=== PATIENT | female | born 1945 | race Caucasian/White ===

== ENCOUNTER 2017-06-28 19:38 | Emergency (ER) | payer MEDICARE ==
--- NOTE | 2017-06-29 10:10 | ER ---
DATE OF SERVICE: 06/28/2017 HISTORY OF PRESENT ILLNESS: A 71-year-old lady here with complaints of pain involving the left side of the chest that happened earlier today. She states it was above and below the left breast and seemed to radiate out to the side. The pain was not intense. She describes it as just being there and the pain is currently resolved. She denies any falls or injuries. She denies any history of heart disease. She did not have any problems with shortness of breath or wheezing. She thinks it may have gotten a little worse when she took a deep breath, she is not sure. She has otherwise been healthy. CURRENT MEDICATIONS: Include Zestoretic. OBJECTIVE: GENERAL APPEARANCE: The patient is awake and alert, in no obvious distress at this time. She denies any pain at all. VITAL SIGNS: Reviewed. Her temp is 98.9, pulse 95, blood pressure 138/64, respirations 20, O2 sats are 99%. HEENT: Ears, TMs are normal. Nares are patent. Oral mucous membranes are moist. Tonsils not enlarged or injected. Pharynx not inflamed. NECK: Supple. LUNGS: Clear without rales, wheezes, or rhonchi. CARDIAC: Heart sounds distinct. S1, S2 present. Regular rate. No murmurs. I cannot reproduce any pain with palpation of the left anterior or lateral chest wall. ABDOMEN: Soft, protuberant, nontender. Bowel sounds are present. SKIN: Warm and dry. LAB AND X-RAY STUDIES: An EKG is obtained showing normal sinus rhythm. Labs include CBC which is normal. CMP is also normal. Troponin is normal. DIAGNOSIS: Chest wall pain, resolved when arriving at the emergency room. TREATMENT PLAN: I advised the patient this could be some kind of inflammatory process or possible pleurisy, but her condition is resolved. I advised her to use ibuprofen or Motrin if the pain reoccurs. Activity should be as tolerated. Follow up is p.r.nAman CRS/MODL /[id number] SARAH
== END 2017-06-28 22:01 | disposition home or self-care (01) ==
LOC: LB.ED 19:38
DX: R07.89 Other chest pain (principal)
CPT/HCPCS: 36415; 80053; 84484; 85025; 93005; 99284-25

== ENCOUNTER 2018-08-31 07:24 | Day surgery (SDC) | payer MEDICARE ==
[~2018-08-31 07:24] MED LIST: Metoclopramide 10 MG/2 ML SDV IV PRN; Sodium Chloride 0.9% 1,000 ML IV SCH
[2018-08-31] MEDS ORDERED: Propofol 1,000 MG/100 ML SDV ONE (09:35)
--- NOTE | 2018-08-31 14:57 | OR ---
DATE OF OPERATION: 08/31/2018 PREOPERATIVE DIAGNOSIS: History of colon polyps. POSTOPERATIVE DIAGNOSIS: History of colon polyps. PROCEDURE: Surveillance colonoscopy. ANESTHESIA: MAC. ESTIMATED BLOOD LOSS: None. COMPLICATIONS: None. INDICATION FOR THE PROCEDURE: The patient is a 73-year-old female who has had previous colonoscopy 5 to 6 years ago, who apparently had polyps at that time and was scheduled for a 5-year followup. She otherwise denies any change in bowel habits since that time. DESCRIPTION OF PROCEDURE: Informed consent was obtained from the patient. The patient was taken to the operating room and placed on the table in the left lateral decubitus position. Monitored anesthesia care was administered. Digital rectal exam performed and was normal. Colonoscope was then advanced through the anus directed toward the cecum. Cecum was reached and identified by appendiceal orifice and ileocecal valve. The colonoscope was then slowly withdrawn. No masses. No polyps. No areas of ischemia or inflammation. No AV malformations identified. She did have moderately severe diverticulosis throughout her sigmoid colon, both large and small diverticula present. Retroflexion performed in the rectum was also otherwise unremarkable. Colonoscope was then withdrawn. FINDINGS: Sigmoid diverticulosis. RECOMMENDATIONS: Would recommend repeat surveillance colonoscopy in 5 years due to personal history of colon polyps. Would also recommend high-fiber diet and plenty of water for her diverticula. ANASTASIIA/EL /[id number]
== END 2018-08-31 11:11 | disposition home or self-care (01) ==
LOC: LB.SDS 07:24
PROVIDERS: ATTEND Surgery
DX: Z12.11 Encounter for screening for malignant neoplasm of colon (principal); K57.30 Diverticulosis of large intestine without perforation or abscess without bleeding; Z86.010 Personal history of colon polyps; I10 Essential (primary) hypertension; Z79.899 Other long term (current) drug therapy
CPT/HCPCS: G0121; J2704; J7030

== ENCOUNTER 2019-09-20 09:34 | Emergency (ER) | payer MEDICARE ==
[2019-09-20] MEDS: Nitroglycerin 0.4 MG Tab.SL SL PRN ×3 (10:08→11:20)
[2019-09-20] MEDS ORDERED: Aspirin 81 MG Tab.Chew PO ONE (10:09)
[2019-09-20] MEDS: Sodium Chloride 0.9% 500 ML IV ONE ×2 (10:25→11:01)
[2019-09-20] MEDS ORDERED: Heparin Sodium 5,000 Units/ML Vial IVPUSH ONE (10:57)
[2019-09-20] MEDS ORDERED: Heparin Sodium/D5W 25,000 UNITS/500 ML BAG IV SCH (11:00)
[2019-09-20] MEDS: Acetaminophen 325 MG Tab ONE ×2 (11:00→11:50)
[2019-09-20] MEDS ORDERED: Tenecteplase 50 MG Kit IV PRN (11:25)
[2019-09-20] MEDS ORDERED: Sodium Chloride 0.9% 1,000 ML IV ONE (11:30)
[2019-09-20] MEDS ORDERED: Acetaminophen 325 MG Tab PO ONE ×2 (11:43→11:50)
--- NOTE | 2019-09-20 14:18 | EDM.PDOC ---
ED HPI GENERAL MEDICAL PROBLEM - General Chief Complaint: General Stated Complaint: SOB, DIZZINESS Time Seen by Provider: 09/20/19 10:00 Source of Information: Reports: Patient History Limitations: Reports: No Limitations - History of Present Illness INITIAL COMMENTS - FREE TEXT/NARRATIVE: Patient is a 74 y/o female who presents with sudden, onset chest pain that started around 0940. She describes it as bilateral chest pain that is tight, sharp, and non-radiating. Associated SOB and diaphoresis. Patient was at rest when symptoms occurred. She takes medications for HTN and HLD. Patient denies any fever, cough, difficulty breathing/swallowing, dizziness, SPRINGER, weakness/tingling, abdominal/back pain, or N/V. Onset: Today, Sudden Associated Symptoms: Reports: Diaphoresis, Shortness of Breath Treatments OFFICE DIRECTOR: Reports: Aspirin Middle Chest Pain Score (Numeric/FACES): 5 - Related Data Allergies Allergy/AdvReac Type Severity Reaction Status Date / Time No Known Allergies Allergy Verified 09/20/19 10:27 Home Meds: Home Meds Aspirin [Adult Low Dose Aspirin EC] 81 mg PO BEDTIME 06/28/17 [History] Lisinopril/Hydrochlorothiazide [Lisinopril-Hctz 20-12.5 mg Tab] 1 each PO BID 06/28/17 [History] atorvaSTATin [Lipitor] 40 mg PO DAILY 08/29/18 [History] Past Medical History HEENT History: Reports: Impaired Vision Cardiovascular History: Reports: High Cholesterol, Hypertension MANAGER ASSESSMENT History: Reports: - Infectious Disease History Infectious Disease History: Reports: Chicken Pox, Measles - Past Surgical History GI Surgical History: Reports: Colonoscopy Musculoskeletal Surgical History: Reports: Other (See Below) Other Musculoskeletal Surgeries/Procedures:: BKA Social & Family History - Family History Family Medical History: Noncontributory - Caffeine Use Caffeine Use: Reports: Coffee Caffeine Use Comment: Drinks tea rarely ED ROS GENERAL - Review of Systems Review Of Systems: Comprehensive ROS is negative, except as noted in HPI. ED EXAM, GENERAL - Physical Exam Exam: See Below Exam Limited By: No Limitations General Appearance: Alert, Anxious, Mild Distress Respiratory/Chest: No Respiratory Distress, Lungs Clear, Normal Breath Sounds, No Accessory Muscle Use, Chest Non-Tender Cardiovascular: Normal Peripheral Pulses, Regular Rate, Rhythm, No Edema, No Gallop, No JVD, No Murmur, No Rub Peripheral Pulses: 2+: Carotid (L), Carotid (R), Radial (L), Radial (R), Dorsalis Pedis (L), Dorsalis Pedis (R) GI/Abdominal: Normal Bowel Sounds, Soft, Non-Tender, No Organomegaly, No Distention Extremities: No Pedal Edema, Normal Capillary Refill Neurological: Alert, Oriented, Normal Cognition EKG INTERPRETATION EKG Date: 09/20/19 Time: 09:48 Rhythm: NSR Rate (Beats/Min): 65 [place]: Normal P-Wave: Present QRS: Normal ST-T: Elevated QT: Normal Comparison: NA - No Prior EKG EKG Interpretation Comments: elevated ST in lead III. ST depression in aVL. Repeat EKG at [address] elevation in inferior leads (II, III, and aVF). Course - Vital Signs Text/Narrative:: Labs, EKG, and chest xray ordered. Patient given nitro x 3 with improvement of chest pain from a 5/10 to 3-4/10 after nitro given. Tylenol 650 mg given for headache. 2 L bolus fluid given. ASA full dose given. Called Dr. Johns (Cardio) from . Heparin 5,000 U bolus given and 800 U/hr afterwards. Elevated troponin. Worsening EKG with repeat. Discussed with Dr. Bean (Cardio) and will fly patient there immediately for rn lab. TNK 50 mg given for thrombolytics. Last Recorded V/S: Last Vital Signs Temp 35.9 C L 09/20/19 10:00 Pulse 55 L 09/20/19 11:41 Resp 15 09/20/19 11:41 BP 96/51 L 09/20/19 11:41 Pulse Ox 96 09/20/19 11:41 - Orders/Labs/Meds Orders: Active Orders 24 hr Category Date Time Status EKG Documentation Completion [RC] ASDIRECTED Care 09/20/19 10:03 Active Chest 1V Frontal [CR] Stat Exams 09/20/19 10:03 Taken Heparin Sodium/D5W [Heparin 25,000 Units in D5W 500 ML] Med 09/20/19 11:00 Active 25,000 units in 500 ml IV TITRATE Tenecteplase [Tnkase] Med 09/20/19 11:25 Ordered 50 mg IV ONETIME PRN Medication Orders Heparin Sodium/Dextrose (Heparin 25,000 Units In D5w 500 Ml) 25,000 units in 500 mls @ 23.514 mls/hr IV TITRATE KASSANDRA; Protocol Last Admin: 09/20/19 10:50 Dose: 16 units/kg/hr, 23.514 mls/hr Documented by: TOM Cosigned by: PAUL Tenecteplase (Tnkase) 50 mg IV ONETIME PRN; Protocol PRN Reason: Chest Pain Labs: Laboratory Tests 09/20/19 09/20/19 09/20/19 Range/Units 10:15 10:15 11:20 WBC 6.7 D (4.0-11.0) K/uL RBC 4.53 (3.80-5.80) M/uL Hgb 13.1 (11.5-16.5) g/dL Hct 39.3 (37.0-47.0) % MCV 87 (76-96) fL MCH 28.9 (27.0-32.0) pg MCHC 33.3 (31.0-35.0) g/dL RDW 15.2 (11.0-16.0) % Plt Count 212 (150-500) K/uL MPV 10.9 H (6.0-10.0) fL Neut % (Auto) 45.7 (45.0-70.0) % Lymph % (Auto) 35.1 (20.0-40.0) % [place] % (Auto) 14.1 H (3.0-10.0) % Eos % (Auto) 4.5 (1.0-5.0) % Baso % (Auto) 0.6 H (0.0-0.5) % Neut # (Auto) 3.05 (2.00-7.50) K/uL Lymph # (Auto) 2.34 (1.50-4.00) K/uL [place] # (Auto) 0.94 H (0.20-0.80) K/uL Eos # (Auto) 0.30 (0.04-0.40) K/uL Baso # (Auto) 0.04 (0.02-0.10) K/uL PT 10.3 (9.0-11.5) sec INR 1.0 (1.0-3.5) APTT 23.4 L (24.4-33.2) SECONDS Sodium 139 (136-145) mmol/L Potassium 3.2 L (3.5-5.1) mmol/L Chloride 104 (98-107) mmol/L Carbon Dioxide 26.2 (21.0-32.0) mmol/L Anion Gap 12.0 (5.0-15.0) mmol/L BUN 35 H (8-26) mg/dL Creatinine 1.60 H (0.55-1.02) mg/dL Est Cr Clr Drug Dosing 26.29 mL/min Estimated GFR (MDRD) 32 L (>60) MLS/MIN BUN/Creatinine Ratio 21.9 (6-25) Glucose 165 H D (74-100) mg/dL Calcium 8.9 (8.5-10.1) mg/dL Total Bilirubin 0.4 (0.0-1.0) mg/dL AST 29 (15-37) U/L ALT 24 (12-78) U/L Alkaline Phosphatase 124 H (46-116) U/L Troponin I 0.619 H* D (0.000-0.060) ng/mL Total Protein 7.4 (6.4-8.2) g/dL Albumin 3.2 L (3.4-5.0) g/dL Globulin 4.2 (2.2-4.2) g/dL Albumin/Globulin Ratio 0.8 (0.8-2.0) Meds: Medications Generic Name Dose Route Start Last Admin Trade Name Freq PRN Reason Stop Dose Admin Heparin Sodium/Dextrose 25,000 units in 500 mls @ 23.514 mls/hr 09/20/19 11:00 09/20/19 10:50 Heparin 25,000 Units In D5w 500 Ml IV 16 units/kg/hr TITRATE KASSANDRA 23.514 mls/hr Administration Protocol 16 UNITS/KG/HR Tenecteplase 50 mg 09/20/19 11:25 Tnkase IV ONETIME PRN Chest Pain Protocol Discontinued Medications Generic Name Dose Route Start Last Admin Trade Name Freq PRN Reason Stop Dose Admin Acetaminophen Confirm 09/20/19 11:16 09/20/19 11:50 Tylenol Administered 09/20/19 11:17 Not Given Dose 650 mg .ROUTE .STK-MED ONE Acetaminophen 650 mg 09/20/19 11:43 09/20/19 11:00 Tylenol PO 09/20/19 11:44 650 mg NOW ONE Administration Acetaminophen 650 mg 09/20/19 11:50 09/20/19 11:51 Tylenol PO 09/20/19 11:51 Not Given NOW ONE Aspirin 273 mg 09/20/19 10:09 09/20/19 10:03 Aspirin PO 09/20/19 10:10 273 mg ONETIME ONE Administration Heparin Sodium (Porcine) 5,000 units 09/20/19 10:57 09/20/19 10:54 Heparin Sodium IVPUSH 09/20/19 10:58 5,000 units .BOLUS ONE Administration Sodium Chloride 500 mls @ 999 mls/hr 09/20/19 01:30 09/20/19 11:01 Normal Saline IV 09/20/19 02:00 999 mls/hr .BOLUS ONE Administration Sodium Chloride 1,000 mls @ 999 mls/hr 09/20/19 11:30 09/20/19 11:34 Normal Saline IV 09/20/19 12:30 999 mls/hr .BOLUS ONE Administration Nitroglycerin 0.4 mg 09/20/19 10:08 09/20/19 11:20 Nitrostat SL 0.4 mg Q5M PRN Administration Chest Pain Departure - Departure Time of Disposition: 11:30 (transfer to [facility] by flight) Disposition: DC/Tfer to Other Condition: Critical Clinical Impression: STEMI (ST elevation myocardial infarction) Qualifiers: Involved coronary artery: other inferior wall coronary artery Qualified Code(s): I21.19 - ST elevation (STEMI) myocardial infarction involving other coronary artery of inferior wall - Discharge Information *PRESCRIPTION DRUG MONITORING PROGRAM REVIEWED*: Not Applicable *COPY OF PRESCRIPTION DRUG MONITORING REPORT IN PATIENT CONNIE: Not Applicable Sepsis Event Note (ED) - Evaluation Sepsis Screening Result: No Definite Risk - Focused Exam Vital Signs: Vital Signs Temp Pulse Resp BP BP Pulse Ox 09/20/19 11:41 55 L 15 96/51 L 96 09/20/19 11:31 56 L 11 L 104/52 L 09/20/19 11:20 100/53 L 09/20/19 11:16 56 L 92/47 L 09/20/19 10:13 111/79 09/20/19 10:08 67 16 114/78 114/78 99 09/20/19 10:06 116/71 92 L 09/20/19 10:00 35.9 C L 66 13 141/79 H 98 09/20/19 09:45 35.9 C L 66 13 141/79 H 98 - My Orders Last 24 Hours: My Active Orders 09/20/19 10:03 EKG Documentation Completion [RC] ASDIRECTED Chest 1V Frontal [CR] Stat 09/20/19 11:00 Heparin Sodium/D5W [Heparin 25,000 Units in D5W 500 ML] 25,000 units in 500 ml IV TITRATE 09/20/19 11:25 Tenecteplase [Tnkase] 50 mg IV ONETIME PRN - Assessment/Plan Last 24 Hours: My Active Orders 09/20/19 10:03 EKG Documentation Completion [RC] ASDIRECTED Chest 1V Frontal [CR] Stat 09/20/19 11:00 Heparin Sodium/D5W [Heparin 25,000 Units in D5W 500 ML] 25,000 units in 500 ml IV TITRATE 09/20/19 11:25 Tenecteplase [Tnkase] 50 mg IV ONETIME PRN
--- NOTE | 2019-09-20 16:12 | CR ---
Date of Service: 09/20/19 Clinical Data: Chest Pain AP PORTABLE CHEST: Comparison is made to a prior exam dated 03/10/18. The heart size is within normal limits. There is calcification of the aortic arch. The pulmonary vasculature appears prominent suggesting mild pulmonary venous congestion or fluid overload. The lungs are clear. No pneumothorax. No pleural effusions. 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 [id number] [facility]
== END 2019-09-20 12:10 | disposition other institution (70) ==
LOC: LB.ED 09:34
DX: I21.19 ST elevation (STEMI) myocardial infarction involving other coronary artery of inferior wall (principal); E78.00 Pure hypercholesterolemia, unspecified; I10 Essential (primary) hypertension; Z79.82 Long term (current) use of aspirin; Z79.899 Other long term (current) drug therapy
CPT/HCPCS: 36415; 71045; 80053; 84484; 85025; 85610; 85730; 93005; 96365; 96375; 99285; A9270; J1644; J3101; J7030; J7040

== ENCOUNTER 2022-03-03 06:40 | Emergency (ER) | payer MEDICARE ==
[2022-03-03] MEDS: Aspirin 81 MG Tab.Chew PO ONE (06:42)
[2022-03-03] MEDS: fentaNYL 100 MCG/2 ML SDV IVPUSH PRN (06:52)
[2022-03-03] MEDS: Heparin Sodium 5,000 Units/ML Vial IVPUSH ONE (07:13)
[2022-03-03] MEDS ORDERED: Heparin Sodium 1,000 Units/ML 10 ML MDV SUBCUT SCH (07:15)
[2022-03-03] MEDS: Heparin Sodium/D5W 25,000 UNITS/500 ML BAG IV SCH (07:17)
[2022-03-03] MEDS: Ondansetron 4 MG/2 ML SDV IVPUSH ONE (07:21)
[2022-03-03] MEDS: Nitroglycerin/D5W 25 MG/250 ML BOTTLE IV SCH (07:22)
[2022-03-03 08:25] VITALS: BP 132/84; PULSE 83
== END 2022-03-03 08:23 ==
LOC: LB.ED 06:40
DX: I24.9 Acute ischemic heart disease, unspecified (principal); E78.00 Pure hypercholesterolemia, unspecified; I10 Essential (primary) hypertension; Z79.82 Long term (current) use of aspirin; Z79.899 Other long term (current) drug therapy; Z20.822 Contact with and (suspected) exposure to COVID-19
CPT/HCPCS: 36415; 71045; 80053; 84484; 85025; 85379; 85730; 93005; 96365; 96368; 96375; 99285-25; A0425; A0429; A9270-GY; J1644; J2405; J3010; J3490; U0002

== ENCOUNTER 2024-04-17 07:54 | Day surgery (SDC) | payer MEDICARE ==
[~2024-04-17 07:54] MED LIST changes: -Sodium Chloride 0.9% 1,000 ML IV SCH
[2024-04-17] MEDS: Sodium Chloride 0.9% 1,000 ML IV SCH (08:45)
[2024-04-17] MEDS ORDERED: Propofol 200 MG/20 ML SDV ONE (10:00)
== END 2024-04-17 11:55 | disposition home or self-care (01) ==
LOC: LB.SDS 07:54
PROVIDERS: ATTEND Surgery
DX: Z12.11 Encounter for screening for malignant neoplasm of colon (principal); D12.2 Benign neoplasm of ascending colon; K63.5 Polyp of colon; K57.30 Diverticulosis of large intestine without perforation or abscess without bleeding; Z86.0100 Personal history of colon polyps, unspecified; Z80.0 Family history of malignant neoplasm of digestive organs; I12.9 Hypertensive chronic kidney disease with stage 1 through stage 4 chronic kidney disease, or unspecified chronic kidney disease; N18.9 Chronic kidney disease, unspecified; E78.5 Hyperlipidemia, unspecified; I25.10 Atherosclerotic heart disease of native coronary artery without angina pectoris; Z79.82 Long term (current) use of aspirin; Z79.899 Other long term (current) drug therapy
CPT/HCPCS: 45380; 45385; 82947; 88305; J2704; J7030

== ENCOUNTER 2024-06-17 20:07 | Emergency (ER) | payer MEDICARE | END 2024-06-17 21:22 | disposition home or self-care (01) | LOC: LB.ED 20:07 | DX: S50.02XA Contusion of left elbow, initial encounter (principal); S00.03XA Contusion of scalp, initial encounter; I10 Essential (primary) hypertension; E78.00 Pure hypercholesterolemia, unspecified; E66.9 Obesity, unspecified; Z79.82 Long term (current) use of aspirin; Z79.899 Other long term (current) drug therapy; W01.198A Fall on same level from slipping, tripping and stumbling with subsequent striking against other object, initial encounter | CPT/HCPCS: 99283 ==